=== PATIENT | male | born 1960 | race Caucasian/White ===

== ENCOUNTER 2016-10-14 18:47 | Outpatient (CLI) | payer BC, OTHER | END 2016-10-14 18:48 | disposition critical access hospital (66) | DX: Z04.6 Encounter for general psychiatric examination, requested by authority (principal) | CPT/HCPCS: A0425; A0429 ==

== ENCOUNTER 2016-12-17 17:29 | Emergency (ER) | payer BC, OTHER ==
[2016-12-17] MEDS ORDERED: LORazepam 0.5 MG TABLET PO STA (18:57)
[2016-12-17] MEDS ORDERED: THIAMINE 100 MG TABLET PO STA (18:57)
--- NOTE | 2016-12-17 19:00 | ED Physician Documentation ---
History of Present Illness - Stated complaint Stated Complaint: ETOH - Chief complaint Chief Complaint: General - History obtained from History obtained from: Patient - History of Present Illness Timing: Other (He presents accompanied by a coworker requesting help with alcohol detox. He denies suicidal ideation.) Review of Systems Constitutional: denies: Fever, Chills Cardiac: denies: Chest pain / pressure, Palpitations Respiratory: denies: Dyspnea, Cough GI: denies: Abdominal Pain PD PAST MEDICAL HISTORY - Past Medical History Cardiovascular: Hypertension, Pulmonary embolism Respiratory: COPD - Past Surgical History Past Surgical History: Yes - Present Medications Home Medications: Ambulatory Orders Medication Instructions Recorded Confirmed Lisinopril/Hydrochlorothiazide 1 cap DAILY 04/27/14 10/14/16 [Lisinopril-Hctz 20-12.5 mg Tab] - Allergies Allergies/Adverse Reactions: Allergies Allergy/AdvReac Type Severity Reaction Status Date / Time No Known Drug Allergies Allergy Verified 10/14/16 19:10 - Social History Does the pt smoke?: Yes Smoking Status: Current every day smoker Does the pt drink ETOH?: Yes Does the pt have substance abuse?: No - Immunizations Immunizations are current?: No - POLST Patient has POLST: No PD ED PE NORMAL - Vitals Vital signs reviewed: Yes - General General: Alert and oriented X 3, Other (ssmells of alcohol but cogent) - Neck Neck: Supple, no meningeal sign, No bony TTP - Neuro Neuro: Alert and oriented X 3, Normal speech - Psych Psych: Normal mood, Normal affect Results - Vitals Vitals: Vital Signs - 24 hr 12/17/16 17:41 Temperature 36.6 C Heart Rate 119 H Respiratory 20 Rate Blood Pressure 113/79 O2 Saturation 97 Oxygen O2 Source Room air PD MEDICAL DECISION MAKING - ED course ED course: There is no evidence of significant withdrawal at this juncture, he does not plan to drink tonight. No social organization professor available to help him navigate at this point and he is encouraged to return in the morning for social organization professor evaluation. Departure - Departure Disposition: 01 Home, Self Care Clinical Impression: Alcohol abuse Condition: Good Record reviewed to determine appropriate education?: Yes Instructions: Addiction Alcohol Comments: Return tomorrow morning at 8 a.m. for social work evaluation.
[2016-12-17] MEDS ORDERED: THIAMINE 100 MG TABLET PO ONE (19:05)
[2016-12-17] MEDS ORDERED: LORazepam 0.5 MG TABLET ONE (19:05)
[2016-12-17 19:11] VITALS: BP 122/80
== END 2016-12-17 19:14 | disposition home or self-care (01) ==
LOC: ED 17:29
DX: F10.10 Alcohol abuse, uncomplicated (principal); I10 Essential (primary) hypertension; J44.9 Chronic obstructive pulmonary disease, unspecified; Z86.711 Personal history of pulmonary embolism; F17.200 Nicotine dependence, unspecified, uncomplicated
CPT/HCPCS: 99283; A9270

== ENCOUNTER 2016-12-18 09:16 | Emergency (ER) | payer BC, OTHER ==
[2016-12-18] MEDS ORDERED: LORazepam 2 MG/ML SYRINGE IVP STA (09:55)
[2016-12-18] MEDS ORDERED: FOLIC ACID INJ 1 MG, THIAMINE INJ 100 MG, MAGNESIUM SULFATE 2 GM, MULTIVITAMIN 10 ML in... IV STA ×5 (09:55)
[2016-12-18] MEDS ORDERED: LORazepam 2 MG/ML SYRINGE ONE (09:57)
[2016-12-18 10:15] LABS: BASOPHILS % (AUTO) 0.4 %; HCT - HEMATOCRIT 41.5 % (42.0-52.0); HGB - HEMOGLOBIN 14.6 g/dL (14.0-18.0); LYMPHOCYTES # (AUTO) 0.7 10^3/uL (1.5-3.5); LYMPHOCYTES % (AUTO) 6.2 %; MEAN CORPUSCULAR HEMOGLOBIN 34.3 pg (27.0-31.0); MEAN CORPUSCULAR HGB CONC 35.2 g/dL (32.0-36.0); MEAN CORPUSCULAR VOLUME 97.3 fL (80.0-94.0); MEAN PLATELET VOLUME 6.2 fL (7.4-11.4); MONOCYTES # (AUTO) 0.4 10^3/uL (0.0-1.0); MONOCYTES % (AUTO) 3.8 %; NEUTROPHILS # (AUTO) 10.7 10^3/uL (1.5-6.6); NEUTROPHILS % (AUTO) 89.6 %; RED BLOOD COUNT 4.27 10^6/uL (4.70-6.10); RED CELL DISTRIBUTION WIDTH 13.3 % (12.0-15.0)
[2016-12-18 10:28] LABS: ALBUMIN/GLOBULIN RATIO 1.4 (1.0-2.2); BILIRUBIN,TOTAL 1.2 mg/dL (0.2-1.0); BUN - BLOOD UREA NITROGEN 13 mg/dL (6-20); CALCIUM 9.3 mg/dL (8.5-10.3); CARBON DIOXIDE - CO2 28 mmol/L (21-32); CHLORIDE 97 mmol/L (101-111); CREATININE 0.9 mg/dL (0.6-1.2); GFR - MDRD 87 (>89); GLUCOSE 128 mg/dL (70-100); LIPASE 16 U/L (22-51); POTASSIUM 4.4 mmol/L (3.5-5.0); SODIUM 137 mmol/L (135-145); TOTAL PROTEIN 7.8 g/dL (6.7-8.2)
[2016-12-18 12:05] VITALS: BP 135/83
--- NOTE | 2016-12-18 12:05 | ED Physician Documentation ---
History of Present Illness - Stated complaint Stated Complaint: VOMITING,DETOX - Chief complaint Chief Complaint: Abd Pain - History obtained from History obtained from: Patient, Family - History of Present Illness Timing: Last night - Additonal information Additional information: 56 y/o male smoker with COPD and alcoholism has decided to stop drinking last night. He has had symptoms similar to what he has had before with shakes and vomiting. He indicates he drinks high gravity 24's usually 1-2 per day. He has not had seizure previously and he did have some vomiting last night. Review of Systems Constitutional: denies: Fever Eyes: denies: Decreased vision Ears: denies: Ear pain Nose: denies: Congestion Throat: denies: Sore throat Cardiac: denies: Chest pain / pressure Respiratory: reports: Cough. denies: Dyspnea GI: reports: Nausea, Vomiting. denies: Abdominal Pain, Constipation, Diarrhea : denies: Dysuria, Frequency Skin: denies: Rash Musculoskeletal: denies: Neck pain, Back pain, Extremity pain Neurologic: reports: Headache. denies: Generalized weakness, Focal weakness, Numbness, Head injury, LOC PD PAST MEDICAL HISTORY - Past Medical History Cardiovascular: Hypertension, Pulmonary embolism Respiratory: COPD - Past Surgical History Past Surgical History: Yes - Present Medications Home Medications: Ambulatory Orders Medication Instructions Recorded Confirmed Lisinopril/Hydrochlorothiazide 1 cap DAILY 04/27/14 10/14/16 [Lisinopril-Hctz 20-12.5 mg Tab] Lorazepam [Ativan] 1 - 2 mg PO Q6HR PRN #30 tablet 12/18/16 Ondansetron Odt [Zofran] 4 mg TL Q6H PRN #10 tablet 12/18/16 - Allergies Allergies/Adverse Reactions: Allergies Allergy/AdvReac Type Severity Reaction Status Date / Time No Known Drug Allergies Allergy Verified 10/14/16 19:10 - Social History Does the pt smoke?: Yes Smoking Status: Current every day smoker Does the pt drink ETOH?: Yes Does the pt have substance abuse?: No - Immunizations Immunizations are current?: No - POLST Patient has POLST: No PD ED PE NORMAL - Vitals Vital signs reviewed: Yes (tachy and hypertensive) - General General: Alert and oriented X 3, No acute distress, Well developed/nourished - HEENT HEENT: Atraumatic, PERRL, EOMI, Other (dry mucous membranes) - Neck Neck: Supple, no meningeal sign, No bony TTP - Cardiac Cardiac: No murmur, Other (tachy to 110) - Respiratory Respiratory: No respiratory distress, Clear bilaterally - Abdomen Abdomen: Soft, Non tender - Back Back: No CVA TTP, No spinal TTP - Derm Derm: Normal color, Warm and dry, No rash - Extremities Extremities: No deformity, No edema - Neuro Neuro: Alert and oriented X 3, regulatory compliance manager 2-12 intact, No motor deficit, No sensory deficit, Normal speech - Psych Psych: Normal mood, Normal affect Results - Vitals Vitals: Vital Signs - 24 hr 12/18/16 12/18/16 12/18/16 09:21 10:10 10:57 Temperature 36.6 C Heart Rate 125 H 111 H 116 H Respiratory 16 18 18 Rate Blood Pressure 146/97 H 123/92 H 135/63 H O2 Saturation 96 100 97 12/18/16 12:04 Temperature Heart Rate 105 H Respiratory 18 Rate Blood Pressure 135/83 H O2 Saturation 97 Oxygen O2 Source Room air - Labs Labs: Laboratory Tests 12/18/16 12/18/16 12/18/16 10:06 10:06 10:06 WBC 12.0 H RBC 4.27 L Hgb 14.6 Hct 41.5 L MCV 97.3 H MCH 34.3 H MCHC 35.2 RDW 13.3 Plt Count 331 MPV 6.2 L Neut # 10.7 H Lymph # 0.7 L [place] # 0.4 Eos # 0.0 Baso # 0.0 Absolute Nucleated RBC 0.01 Nucleated RBCs 0.0 Sodium 137 Potassium 4.4 Chloride 97 L Carbon Dioxide 28 Anion Gap 12.0 BUN 13 Creatinine 0.9 Estimated GFR (MDRD) 87 L Glucose 128 H Calcium 9.3 Total Bilirubin 1.2 H AST 38 ALT 28 Alkaline Phosphatase 101 Troponin I < 0.04 Total Protein 7.8 Albumin 4.5 Globulin 3.3 Albumin/Globulin Ratio 1.4 Lipase 16 L Ethyl Alcohol < 5.0 PD MEDICAL DECISION MAKING - ED course Complexity details: reviewed old records, reviewed results, re-evaluated patient , considered differential, d/w patient, d/w family ED course: 56 y/o male with history of alcoholism has decided to stop drinking and is in early withdrawal. He has had the shakes and the vomiting and he feels he is on the other side of that already. He has tachycardia and hypertension and he is given a banana bag IV and ativan IV and feels improved. The social services coordinator is not able to directly see the patient as she is working the floor today and she does provide some resources. The patient is interested in some out patient help and feels that he will be able to detox without being in a hospital. He is given a script for ativan and instruction on its use for withdrawal. Departure - Departure Disposition: 01 Home, Self Care Clinical Impression: Alcohol withdrawal Qualifiers: Complication of substance-induced condition: uncomplicated Qualified Code(s): F10.230 - Alcohol dependence with withdrawal, uncomplicated Condition: Stable Instructions: ED Withdrawal Alcohol Follow-Up: Bay Montano DO [Primary Care Provider] - Prescriptions: Lorazepam [Ativan] 1 - 2 mg PO Q6HR PRN #30 tablet PRN Reason: withdrawal symptoms Ondansetron Odt [Zofran] 4 mg TL Q6H PRN #10 tablet PRN Reason: Nausea / Vomiting Forms: Activity restrictions Discharge Date/Time: 12/18/16 12:13
== END 2016-12-18 12:13 | disposition home or self-care (01) ==
LOC: ED 09:16
DX: F10.230 Alcohol dependence with withdrawal, uncomplicated (principal); F17.200 Nicotine dependence, unspecified, uncomplicated; I10 Essential (primary) hypertension; I26.99 Other pulmonary embolism without acute cor pulmonale
CPT/HCPCS: 36415; 80053; 80320; 83690; 84484; 85025; 96374; 96375; 99283; 99284; J2060; J3411

== ENCOUNTER 2018-08-11 09:10 | Outpatient (CLI) | payer BC, OTHER ==
[2018-08-11 12:21] LABS: BASOPHILS # (AUTO) 0.1 10^3/uL (0.0-0.1); BASOPHILS % (AUTO) 0.8 %; EOSINOPHILS % (AUTO) 0.6 %; LYMPHOCYTES # (AUTO) 1.7 10^3/uL (1.5-3.5); LYMPHOCYTES % (AUTO) 26.3 %; MEAN CORPUSCULAR HGB CONC 35.2 g/dL (32.0-36.0); MEAN PLATELET VOLUME 6.4 fL (7.4-11.4); MONOCYTES # (AUTO) 0.4 10^3/uL (0.0-1.0); MONOCYTES % (AUTO) 5.5 %; NEUTROPHILS # (AUTO) 4.4 10^3/uL (1.5-6.6); NEUTROPHILS % (AUTO) 66.8 %; PLT - PLATELET COUNT 326 10^3/uL (130-450); RED BLOOD COUNT 3.89 10^6/uL (4.70-6.10); RED CELL DISTRIBUTION WIDTH 12.8 % (12.0-15.0); WHITE BLOOD COUNT 6.6 x10^3/uL (4.8-10.8)
[2018-08-11 12:54] LABS: ALBUMIN 4.2 g/dL (3.2-5.5); ALBUMIN/GLOBULIN RATIO 1.2 (1.0-2.2); ALKALINE PHOSPHATASE 81 IU/L (42-121); ALT ALANINE AMINOTRANSFERASE 15 IU/L (10-60); AST ASPARTATE AMINOTRANSFERASE 22 IU/L (10-42); BILIRUBIN,TOTAL 0.5 mg/dL (0.2-1.0); BUN - BLOOD UREA NITROGEN 20 mg/dL (6-20); CALCIUM 8.7 mg/dL (8.5-10.3); CARBON DIOXIDE - CO2 29 mmol/L (21-32); CHLORIDE 96 mmol/L (101-111); CHOLESTEROL 140 mg/dL; CREATININE 0.7 mg/dL (0.6-1.2); GFR - MDRD 115 (>89); GLUCOSE 91 mg/dL (70-100); HDL CHOLESTEROL 69 mg/dL; LDL CHOLESTEROL,CALCULATED 35 mg/dL; LDL/HDL RATIO 0.5 (<3.6); SODIUM 134 mmol/L (135-145); TOTAL PROTEIN 7.6 g/dL (6.7-8.2); VLDL CHOLESTEROL 36 mg/dL
== END 2018-08-11 23:59 | disposition home or self-care (01) ==
LOC: LAB.WCP 09:10
PROVIDERS: ATTEND Family Medicine
DX: I10 Essential (primary) hypertension (principal)
CPT/HCPCS: 36415; 80053; 80061; 83721; 84153; 85025

== ENCOUNTER 2019-08-25 09:08 | Outpatient (CLI) | payer BC, OTHER ==
--- NOTE | 2019-08-25 15:23 | XRAY Report ---
Reason: COPD Procedure Date: 08/25/2019 Accession Number: [id number] / [id number] Procedure: WCP - Chest 2 View X-Ray CPT Code: 91184 Final Report FULL RESULT: EXAM: CHEST RADIOGRAPHY 2 VIEWS EXAM DATE: 08/25/2019. CLINICAL HISTORY: Chronic obstructive pulmonary disease. Asthma. Cough for one week. COMPARISON: AP upright portable chest on 01/29/2016. TECHNIQUE: PA and lateral views. FINDINGS: Lungs/Pleura: Normal vasculature. The lungs are hyperinflated. No consolidation or mass. No pleural fluid or pneumothorax. Mediastinum: Heart size is normal. Aortic tortuosity is unchanged. Otherwise normal mediastinal contours. Bones: Mild levoconvex thoracic scoliosis. Healed fractures of anterior right sixth, seventh and eighth ribs. Other: Metal nipple ring projected over the lower left chest. IMPRESSION: Pulmonary hyperinflation consistent with chronic obstructive pulmonary disease. No acute cardiopulmonary abnormality. RADIA
--- NOTE | 2019-08-25 16:25 | XRAY Report ---
Reason: SCOLIOSIS Procedure Date: 08/25/2019 Accession Number: [id number] / [id number] Procedure: P - Spine Scoliosis Study 6+V CPT Code: Final Report FULL RESULT: EXAM: SCOLIOSIS RADIOGRAPHY EXAM DATE: 08/25/2019 09:08 AM. CLINICAL HISTORY: Scoliosis. COMPARISONS: CHEST 1 VIEW 01/27/2016 11:04 PM CHEST 1 VIEW 01/29/2016 5:31 AM CHEST ANGIO 04/27/2014 5:34 PM. TECHNIQUE: AP and lateral views of the entire spine. FINDINGS: Odontoid view is suboptimal, study is diagnostic for the purpose of scoliosis. Alignment: Approximately 8 mm of anterolisthesis of L5 on S1. There is a levoconvex S-shaped thoracic scoliosis centered about T9, approximately 8 degrees followed by a minimal compensatory lumbar scoliosis centered about L1, less than 4 degrees. No cervical scoliosis. Bones: The bones are qualitatively osteopenic; this limits evaluation for underlying fractures or masses. No convincing compression fracture is detected. There is a pars defect at L5. Disks: Multilevel degenerative changes of the cervical spine which are most pronounced at C4, C5 and C6 with loss of disk space height and formation of disk osteophyte complexes. Soft Tissues: Normal. The visualized lungs and cardiomediastinal silhouette are normal. The bowel gas pattern is normal. IMPRESSION: Minor thoracolumbar scoliosis, not significantly different from 2014 CT. L5 pars defect with 8 mm of anterolisthesis. RADIA
== END 2019-08-25 09:09 | disposition home or self-care (01) ==
LOC: DI.WCP 09:08
PROVIDERS: ATTEND Family Medicine
DX: J44.9 Chronic obstructive pulmonary disease, unspecified (principal); M43.06 Spondylolysis, lumbar region; M50.321 Other cervical disc degeneration at C4-C5 level; M41.9 Scoliosis, unspecified
CPT/HCPCS: 71046; 72084

== ENCOUNTER 2019-11-16 18:13 | Outpatient (CLI) | payer BC, OTHER | END 2019-11-16 18:14 | disposition critical access hospital (66) | LOC: EMS 18:13 | PROVIDERS: ATTEND Surgery | DX: M54.9 Dorsalgia, unspecified (principal); W01.10XA Fall on same level from slipping, tripping and stumbling with subsequent striking against unspecified object, initial encounter | CPT/HCPCS: A0425; A0429 ==

== ENCOUNTER 2019-11-16 18:33 | Emergency (ER) | payer BC, OTHER ==
--- NOTE | 2019-11-16 19:16 | ED Physician Documentation ---
History of Present Illness - Stated complaint Stated Complaint: MID BACK PAIN - Chief complaint Chief Complaint: Back Pain - History obtained from History obtained from: Patient (59-year-old male presents this evening via EMS for chief complaint of left-sided back pain from ground-level fall approximately 1 week ago. Patient states he was at home ambulating to his house when he tripped on a throw rug, he fell to the ground landing on his butt and then falling sideways landed on a leg of a chair on his left ribs. He has had left- sided rib pain since then. He denies hitting his head, he denies any loss of consciousness, he denies pain anywhere else. States pain is worse when he moves his upper torso in any position, somewhat more comfortable when lying down though he is getting less sleep because of the pain. Denies any breathing problems outside of his usual COPD/asthma.) - History of Present Illness Timing: How many weeks ago (1) Pain level max: 8 Pain level now: 3 Quality: constant, ache Radiates to: nowhere Improved by: nothing Worsened by: movement - Treatment prior to arrival Treatment prior to arrival: nothing Review of Systems Constitutional: reports: Reviewed and negative Eyes: reports: Reviewed and negative Ears: reports: Reviewed and negative Nose: reports: Reviewed and negative Cardiac: reports: Reviewed and negative Respiratory: reports: Reviewed and negative : reports: Reviewed and negative Musculoskeletal: reports: Other (left lateral rib pain.) PD PAST MEDICAL HISTORY - Past Medical History Past Medical History: Yes Cardiovascular: Hypertension, Pulmonary embolism Respiratory: COPD - Past Surgical History Past Surgical History: Yes - Present Medications Home Medications: Ambulatory Orders Medication Instructions Recorded Confirmed Lisinopril/Hydrochlorothiazide 1 cap DAILY 04/27/14 10/14/16 [Lisinopril-Hctz 20-12.5 mg Tab] Lorazepam [Ativan] 1 - 2 mg PO Q6HR PRN #30 tablet 12/18/16 Ondansetron Odt [Zofran] 4 mg TL Q6H PRN #10 tablet 12/18/16 - Allergies Allergies/Adverse Reactions: Allergies Allergy/AdvReac Type Severity Reaction Status Date / Time No Known Drug Allergies Allergy Verified 11/16/19 18:41 - Social History Does the pt smoke?: Yes Smoking Status: Current every day smoker Does the pt drink ETOH?: Yes Does the pt have substance abuse?: No - Immunizations Immunizations are current?: No - POLST Patient has POLST: No PD ED PE NORMAL - General General: Alert and oriented X 3, No acute distress - HEENT HEENT: Atraumatic, PERRL, EOMI - Neck Neck: No adenopathy - Cardiac Cardiac: RRR - Respiratory Respiratory: No respiratory distress, Clear bilaterally - Abdomen Abdomen: Normal bowel sounds, Soft, Non tender - Back Back: No CVA TTP - Derm Derm: Normal color, Warm and dry, No rash - Neuro Neuro: Alert and oriented X 3 Results - Vitals Vitals: Vital Signs - 24 hr 11/16/19 11/16/19 18:41 19:47 Temperature 36.6 C Heart Rate 120 H 98 Respiratory 16 16 Rate Blood Pressure 139/93 H 126/84 H O2 Saturation 96 93 Oxygen O2 Source Room air - Rads (name of study) No standard instances Radiology: Final report received (No acute fracture noted.), See rad report PD MEDICAL DECISION MAKING - ED course Complexity details: reviewed results, re-evaluated patient, considered differe ntial (Left rib fracture versus left bone contusion.), d/w patient Departure - Departure Disposition: 01 Home, Self Care Clinical Impression: Contusion of rib on left side Qualifiers: Encounter type: initial encounter Qualified Code(s): S20.212A - Contusion of left front wall of thorax, initial encounter Condition: Good Instructions: ED Contusion Chest Wall Comments: There were no fractures noted to be ribs on the left side today. All you most likely have a rib contusion on the left side from hitting knee foot of the chair. You can continue to use her normal [id number] pain medicine, Tylenol, ibuprofen for pain control he can also apply ice to that area. You may follow-up with your primary care provider for further treatment options. I recommend you remove your throw rugs from your house so that you do not have issues with tripping on them in the future. Follow-up with your primary care provider to discuss treatment options for your COPD. Discharge Date/Time: 11/16/19 20:34
[2019-11-16 19:48] VITALS: BP 126/84
--- NOTE | 2019-11-16 20:22 | XRAY Report ---
Reason: GLF, left lateral rib pain. Procedure Date: 11/16/2019 Accession Number: [id number] / [id number] Procedure: XR - Ribs w/PA Chest LT CPT Code: Final Report FULL RESULT: EXAM: LEFT RIB RADIOGRAPHY EXAM DATE: 11/16/2019 07:39 PM. CLINICAL HISTORY: Lateral left rib cage pain status post trauma during a ground-level fall. COMPARISON: CHEST 2 VIEW 08/25/2019 8:55 AM; CHEST ANGIO 04/27/2014 5:34 PM. TECHNIQUE: 1 view of the chest and 2 views of the left ribs. FINDINGS: Bones: Healed lateral left seventh rib fracture. No acute fracture or bone lesion. Normal bone mineralization. Lungs: No focal opacities. No pneumothorax. No pleural effusions. Mediastinum: The cardiac silhouette size is normal. Tortuous thoracic aorta. Other: Left nipple jewelry. IMPRESSION: 1. No acute fracture. 2. Healed lateral left seventh rib fracture. 3. Ectatic thoracic aorta. 4. Left nipple jewelry. RADIA
== END 2019-11-16 20:34 | disposition home or self-care (01) ==
LOC: EDUNIT# → ED 18:33
DX: S20.212A Contusion of left front wall of thorax, initial encounter (principal); W01.190A Fall on same level from slipping, tripping and stumbling with subsequent striking against furniture, initial encounter; Y92.009 Unspecified place in unspecified non-institutional (private) residence as the place of occurrence of the external cause; I10 Essential (primary) hypertension; F17.200 Nicotine dependence, unspecified, uncomplicated
CPT/HCPCS: 93005; 99283; 99284

== ENCOUNTER 2019-11-19 13:47 | Outpatient (CLI) | payer BC, OTHER | END 2019-11-19 23:59 | disposition critical access hospital (66) | LOC: EMS 13:47 | PROVIDERS: ATTEND Surgery | DX: R55 Syncope and collapse (principal); S09.90XA Unspecified injury of head, initial encounter; W19.XXXA Unspecified fall, initial encounter; Y92.512 Supermarket, store or market as the place of occurrence of the external cause; R41.82 Altered mental status, unspecified; R47.81 Slurred speech | CPT/HCPCS: A0425; A0427 ==

== ENCOUNTER 2019-11-19 14:04 | Emergency (ER) | payer BC, OTHER ==
[2019-11-19] MEDS ORDERED: TETANUS/DIPHTHERIA/PERTUSSIS 0.5 ML SYRINGE IM ONE (14:29)
--- NOTE | 2019-11-19 14:31 | ED Physician Documentation ---
PD HPI HEAD INJURY - Stated complaint Stated Complaint: SYNCOPE - Chief complaint Chief Complaint: Neuro - History obtained from History obtained from: Patient (59-year-old gentleman with history of hypertension and COPD had a few drinks and then ambulated over to the grocery store, he does not quite remember which 1. He thinks it was probably [employer] because that is the one he lives closest to. Evidently passed out there and hit his head. He has a left-sided head injury, but it is not hurting him. He denies any painful injuries except for his back which is a more chronic issue and was not hurt today.) Review of Systems Ten Systems: 10 systems reviewed and negative Constitutional: denies: Fever, Chills Eyes: reports: Reviewed and negative Ears: reports: Reviewed and negative Nose: reports: Reviewed and negative Throat: reports: Reviewed and negative Cardiac: reports: Reviewed and negative Respiratory: reports: Reviewed and negative PD PAST MEDICAL HISTORY - Past Medical History Cardiovascular: Hypertension, Pulmonary embolism Respiratory: COPD - Past Surgical History Past Surgical History: Yes - Present Medications Home Medications: Ambulatory Orders Medication Instructions Recorded Confirmed Lisinopril/Hydrochlorothiazide 1 cap DAILY 04/27/14 10/14/16 [Lisinopril-Hctz 20-12.5 mg Tab] Lorazepam [Ativan] 1 - 2 mg PO Q6HR PRN #30 tablet 12/18/16 Ondansetron Odt [Zofran] 4 mg TL Q6H PRN #10 tablet 12/18/16 - Allergies Allergies/Adverse Reactions: Allergies Allergy/AdvReac Type Severity Reaction Status Date / Time No Known Drug Allergies Allergy Verified 11/19/19 14:16 - Social History Does the pt smoke?: Yes Smoking Status: Current every day smoker Does the pt drink ETOH?: Yes Does the pt have substance abuse?: No - Immunizations Immunizations are current?: No - POLST Patient has POLST: No PD ED PE NORMAL - Vitals Vital signs reviewed: Yes - General General: Alert and oriented X 3, Other (He is alert and oriented, calm and cooperative. He does smell slightly of alcohol and has significant horizontal nystagmus. He is maintained in C-spine precautions pending imaging despite lack of neck tenderness given his potentially intoxicated status.) - HEENT HEENT: PERRL, Other (On the left samaritan there is a goose egg with an overlying abrasion, nothing that needs suturing or repair.) - Neck Neck: No bony TTP - Cardiac Cardiac: RRR, No murmur - Respiratory Respiratory: No respiratory distress, Clear bilaterally - Abdomen Abdomen: Soft, Non tender - Back Back: No CVA TTP, No spinal TTP - Derm Derm: Normal color, Warm and dry - Extremities Extremities: No tenderness to palpate, Normal ROM s pain, No edema, No calf tenderness / cord - Neuro Neuro: Alert and oriented X 3, No motor deficit, No sensory deficit, Normal speech Results - Vitals Vitals: Vital Signs - 24 hr 11/19/19 11/19/19 14:11 15:35 Temperature 36.7 C 36.9 C Heart Rate 118 H 108 H Respiratory 20 18 Rate Blood Pressure 112/92 H 167/124 H O2 Saturation 95 97 Oxygen O2 Source Room air - EKG (time done) 1419 Rate: Rate (enter#) (107) Rhythm: Sinus tachycardia [place]: Normal Intervals: Normal DC QRS: Normal Ischemia: Normal ST segments Computer interpretation: Agree with computer - Labs Labs: Laboratory Tests 11/19/19 11/19/19 11/19/19 15:00 15:00 15:00 WBC 5.2 RBC 3.66 L Hgb 13.1 L Hct 38.4 L MCV 104.9 H MCH 35.8 H MCHC 34.1 RDW 12.4 Plt Count 147 MPV 8.2 Neut # (Auto) 3.5 Lymph # (Auto) 1.2 L [place] # (Auto) 0.3 Eos # (Auto) 0.0 Baso # (Auto) 0.1 Absolute Nucleated RBC 0.00 Nucleated RBC % 0.0 PT 11.1 INR 1.0 Sodium 138 Potassium 5.0 Chloride 100 L Carbon Dioxide 27 Anion Gap 11.0 BUN 9 Creatinine 0.6 Estimated GFR (MDRD) 137 Glucose 96 Calcium 8.8 Total Bilirubin 0.7 AST 157 H ALT 93 H Alkaline Phosphatase 95 Total Protein 7.7 Albumin 4.4 Globulin 3.3 Albumin/Globulin Ratio 1.3 Lipase 34 - Rads (name of study) CT head and cervical spine Radiology: EMP read contemporaneously (Brain looks normal, left temporal hematoma. Multilevel degenerative changes in the neck.) PD MEDICAL DECISION MAKING - ED course ED course: 59-year-old gentleman passed out at the [employer] store, likely from alcohol use. He was clinically sober by the time of discharge. Counseled to stop using alcohol. Departure - Departure Disposition: 01 Home, Self Care Clinical Impression: Alcohol abuse Alcohol intoxication Qualifiers: Complication of substance-induced condition: uncomplicated Qualified Code(s): F10.920 - Alcohol use, unspecified with intoxication, uncomplicated Syncope Qualifiers: Syncope type: unspecified Qualified Code(s): R55 - Syncope and collapse Head injury Qualifiers: Encounter type: initial encounter Qualified Code(s): S09.90XA - Unspecified injury of head, initial encounter Condition: Good Record reviewed to determine appropriate education?: Yes Instructions: ED Alcohol Intoxication, ED Fainting Unkn Cause Comments: It is imperative for you to stop drinking. This is not your first emergency department visit related to alcohol abuse. Return for new or worsening symptoms. Follow-up with your primary care physician, next available appointment. Discharge Date/Time: 11/19/19 16:07
[2019-11-19 15:05] LABS: BASOPHILS # (AUTO) 0.1 10^3/uL (0.0-0.1); EOSINOPHILS % (AUTO) 0.8 %; HGB - HEMOGLOBIN 13.1 g/dL (14.0-18.0); LYMPHOCYTES # (AUTO) 1.2 10^3/uL (1.5-3.5); LYMPHOCYTES % (AUTO) 23.1 %; MEAN CORPUSCULAR HEMOGLOBIN 35.8 pg (27.0-31.0); MEAN CORPUSCULAR HGB CONC 34.1 g/dL (32.0-36.0); MEAN CORPUSCULAR VOLUME 104.9 fL (80.0-94.0); MEAN PLATELET VOLUME 8.2 fL (7.4-11.4); MONOCYTES # (AUTO) 0.3 10^3/uL (0.0-1.0); MONOCYTES % (AUTO) 6.6 %; NEUTROPHILS # (AUTO) 3.5 10^3/uL (1.5-6.6); NEUTROPHILS % (AUTO) 68.1 %; PLT - PLATELET COUNT 147 10^3/uL (130-450); RED BLOOD COUNT 3.66 10^6/uL (4.70-6.10); RED CELL DISTRIBUTION WIDTH 12.4 % (12.0-15.0); WHITE BLOOD COUNT 5.2 x10^3/uL (4.8-10.8)
[2019-11-19 15:11] LABS: PT - PROTHROMBIN TIME 11.1 secs (9.9-12.6)
[2019-11-19 15:18] LABS: ALBUMIN 4.4 g/dL (3.2-5.5); ALBUMIN/GLOBULIN RATIO 1.3 (1.0-2.2); BILIRUBIN,TOTAL 0.7 mg/dL (0.2-1.0); CALCIUM 8.8 mg/dL (8.5-10.3); CREATININE 0.6 mg/dL (0.6-1.2); TOTAL PROTEIN 7.7 g/dL (6.7-8.2)
--- NOTE | 2019-11-19 15:21 | CT Report ---
Reason: head injury etoh Procedure Date: 11/19/2019 Accession Number: [id number] / [id number] Procedure: CT - HEAD WO CPT Code: Final Report FULL RESULT: EXAM: CT HEAD EXAM DATE: 11/19/2019 02:52 PM. CLINICAL HISTORY: Head injury ETOH. COMPARISON: None. TECHNIQUE: Multiaxial CT images were obtained from the foramen magnum to the vertex. Reformats: Sagittal and coronal. IV contrast: None. In accordance with CT protocol optimization, one or more of the following dose reduction techniques were utilized for this exam: automated exposure control, adjustment of mA and/or KV based on patient size, or use of iterative reconstructive technique. FINDINGS: Parenchyma: No intraparenchymal hemorrhage. No evidence of mass, midline shift, or CT findings of infarction. Cyr-white differentiation is distinct. Extraaxial Spaces: Normal for age. No subdural or epidural collections identified. Ventricles: Normal in size and position. Sinuses and Orbits: Imaged paranasal sinuses, orbits, and mastoids show no significant abnormality. Bones: There is a superior lateral left scalp hematoma. There is no calvarium fracture. Other: None. IMPRESSION: 1. Lateral left scalp hematoma. No fracture. 2. Negative for intracranial hemorrhage, mass effect or localizing edema. RADIA
--- NOTE | 2019-11-19 15:30 | CT Report ---
Reason: head injury etoh Procedure Date: 11/19/2019 Accession Number: [id number] / [id number] Procedure: CT - CERVICAL SPINE WO CPT Code: Final Report FULL RESULT: EXAM: CT CERVICAL SPINE WITHOUT CONTRAST DATE: 11/19/2019 02:52 PM. HISTORY: Head injury etoh. COMPARISONS: None. TECHNIQUE: Thin-section axial images were acquired of the cervical spine without contrast. Post-processing: Coronal and sagittal reformats. Other: None. In accordance with CT protocol optimization, one or more of the following dose reduction techniques were utilized for this exam: automated exposure control, adjustment of mA and/or KV based on patient size, or use of iterative reconstructive technique. FINDINGS: Alignment: No scoliosis or spondylolisthesis. Bones: No fracture or bone lesion. Incomplete bony union posterior aspect of C1-C2 mm gap Interspace Levels/Facets: C1-C2: Unremarkable. C2-C3: Unremarkable. C3-C4: Left facet arthropathy C4-C5: Osteophyte. Disk space narrowing, subchondral sclerosis. Uncovertebral osteophyte. Bilateral facet arthropathy. Bilateral neuroforamina narrowing. C5-C6: Osteophyte. Disk space narrowing, subchondral sclerosis. Uncovertebral osteophyte. Bilateral neuroforamina narrowing. C6-C7: Osteophyte. Disk space narrowing, subchondral sclerosis. Uncovertebral osteophyte. Bilateral neuroforamina narrowing. C7-T1: Osteophyte, disk space narrowing, uncovertebral osteophyte. Right neuroforamina narrowing. Musculature: Normal. No fatty atrophy. Other: The paravertebral and prevertebral soft tissues are unremarkable. The lung apices are clear. Mucosal thickening maxillary, sphenoid sinuses IMPRESSION: Multilevel degenerative changes. RADIA
[2019-11-19 15:36] VITALS: BP 167/124
== END 2019-11-19 16:07 | disposition home or self-care (01) ==
LOC: EDUNIT# → ED 14:04
DX: F10.120 Alcohol abuse with intoxication, uncomplicated (principal); R55 Syncope and collapse; S06.9X9A Unspecified intracranial injury with loss of consciousness of unspecified duration, initial encounter; S00.83XA Contusion of other part of head, initial encounter; W18.30XA Fall on same level, unspecified, initial encounter; Y92.512 Supermarket, store or market as the place of occurrence of the external cause; I10 Essential (primary) hypertension; J44.9 Chronic obstructive pulmonary disease, unspecified; F17.210 Nicotine dependence, cigarettes, uncomplicated
CPT/HCPCS: 36415; 70450; 72125; 80053; 83690; 85025; 85610; 90471; 93005; 99284

== ENCOUNTER 2019-12-23 08:00 | Outpatient (CLI) | payer BC, OTHER ==
[2019-12-23 13:57] LABS: CALCIUM 9.2 mg/dL (8.5-10.3); CREATININE 0.8 mg/dL (0.6-1.2)
== END 2019-12-23 23:59 | disposition home or self-care (01) ==
LOC: LAB.WCP 08:00
PROVIDERS: ATTEND Family Medicine
DX: R60.9 Edema, unspecified (principal)
CPT/HCPCS: 36415; 80048

== ENCOUNTER 2020-08-03 09:53 | Outpatient (CLI) | payer OTHER ==
--- OUTSIDE RECORDS SUMMARY | 2020-08-08 01:33 | EXTERNAL MEDICAL SUMMARY RPT | Continuity of Care Document ---
:1960 Demographics Phone Unavailable Preferred Language pat Marital Status Unknown Anglican Affiliation Unknown Race Unknown Ethnic Group Unknown Author Organization [place] Address [address] [place] [address] Phone Care Team Providers Name Role Phone Scheidt Unavailable Unavailable DO Unavailable Unavailable Problems date description facility 2020-06-05 00:00:00 Other dyspnea and respiratory [facility] Primary [facility] abnormality [place] [facility] 2020-06-05 00:00:00 [facility] [place] [facility] 2020-06-05 00:00:00 Basic Metabolic Panel (BMP) [facility] [place] [facility] 2020-06-05 00:00:00 B-[facility] [place] [facility] 2020-06-05 00:00:00 CBC W/O Diff[facility] [place] [facility] 2020-06-05 00:00:[facility] [place] [facility] 2020-06-05 00:00:00 US VENOUS, LOWER EXTREMITY, [facility] BILATERAL [place] [facility] 2020-06-05 00:00:00 Other forms [facility] [place] [facility] 2020-06-05 00:00:00 [facility] [place] [facility] 2020-06-05 00:00:00 Health[facility]related [facility] [place] [facility] 2020-06-05 00:00:00 Tobacco [facility] exposure [facility] [place] [facility] 2020-06-05 00:00:00 [facility] [place] [facility] 2020-06-05 00:00:00 Details of drug [facility] [place] [facility] 2020-06-05 00:00:00 Current every day smoker [facility] [place] [facility] 2020-06-05 00:00:00 [facility] exertion [facility] 2020-06-05 00:00:00 How often do you have 6 or [facility] more drinks on 1 occasion? [facility] 2020-06-05 00:00:[facility] 2020-06-05 00:00:00 Tobacco smoking status IDIS [facility] 2020-06-05 00[facility]00:00 [facility] 2020-07-17 00:00:00 [facility] 2020-07-17 00:00:00 [facility]related behavior [facility] 2020-07-17 00:00:00 [facility] 2020-07-17 00:00:00 Exercise [facility] 2020-07-17 00:00:00 Details of drug misuse [facility] behavior [facility] 2020-07-17 00:00:00 Current every day smoker [facility] 2020-07-17 00:00:00 How often do you have 6 or [facility] more drinks on 1 occasion? [facility] 2020-07-17 00:00:00 [facility] 2020-07-17 00:00:00 Tobacco smoking status IDIS [facility] Primary Care [facility] 2020-07-17 00:00:00 Total [facility] 2020-08-15 12:45 OTHER FORMS OF DYSPNEA [facility] Allergies date description facility AZITHROMYCIN [facility] [place] ZINC [facility] [place] ERYTHROMYCIN BASE [facility] [place] NO KNOWN ENVIRONMENTAL ALLERGIES [facility] OTHER [facility] TOMATO (SOLANUM LYCOPERSICUM) [facility] NSAIDS (NON-STEROIDAL ANTI-INFLAMMATORY DRUG) [facility] PENICILLINS [facility] SULFA (SULFONAMIDE ANTIBIOTICS) formerly [facility] IODINATED CONTRAST MEDIA [facility] NO KNOWN ALLERG[facility] LORAZEPAM [facility] PROCHLORPERAZINE EDISYLATE [facility]IN [facility] DYE [facility] FUROSEMIDE [facility] DOXYCYCLINE [facility] CLINDAMYCIN [facility] NYSTATIN [facility] HYMENOPTERA ALLERGENIC EXTRACT [facility] OMEPRAZOLE [facility] METOPROLOL [facility] ZOLPIDEM [facility] RISPERIDONE [facility] PROMETHAZINE [facility] AMITRIPTYLINE [facility] SERTRALINE [facility] HYDROMORPHONE [facility] KETOROLAC [facility] PANTOPRAZOLE [facility] OMEPRAZOLE MAGNESIUM [facility] CAPTOPRIL [facility] MONTELUKAST [facility] BEE POLLEN [facility] IODINE [facility] LATEX [facility] TOPICAL AGENT COMBINATION NO.1 [facility] STRAWBERRY [facility] AMOXICILLIN-POT CLAVULANATE [facility] [place] NUTRITIONAL SUPPLEMENT-FIBER [facility] ADHESIVE TAPE-SILICONES [facility] NORGESTIMATE-ETHINYL ESTRADIOL [facility] Procedures date description facility 2020-06-05 00:00:00 EKG Interpretation [facility] [place] [facility] date description facility 2020-06-05 00:00:00 [facility] [place] [facility] Social History date description facility 2020-06-05 00:00:00 [facility] [place] [facility] date description facility 2020-07-17 00:00:00 [facility] [place] [facility] Social History date description facility 2020-06-05 00:00:00 Current every day smoker [facility] date description facility 2020-07-17 00:00:00 Current every day smoker [facility] date description facility [id number]
== END 2020-08-03 09:54 | disposition home or self-care (01) ==
LOC: DI 09:53
PROVIDERS: ATTEND Family Medicine
DX: R00.0 Tachycardia, unspecified (principal); R60.0 Localized edema; Z86.711 Personal history of pulmonary embolism
CPT/HCPCS: 93306; 93970

== ENCOUNTER 2020-08-03 09:55 | Outpatient (CLI) | payer OTHER ==
--- NOTE | 2020-08-03 14:03 | Ultrasound Report ---
PROCEDURE: Duplex Ext Veins Bilateral INDICATIONS: JUDYE SCHEIDT TECHNIQUE: Real-time imaging, as well as color and pulse Doppler interrogation, were performed of the deep veins of both legs from the inguinal ligament to the popliteal fossa. COMPARISON: None. FINDINGS: The deep veins are normally compressible, and free of intraluminal thrombus. Color and pu lse Doppler demonstrate normal phasic intravascular flow. There is normal augmentation response to d istal compression maneuver. IMPRESSION: No DVT found. Reviewed by: Kamran Gomez MD on 08/03/2020 2:02 PM PST Approved by: Kamran Gomez MD on 08/03/2020 2:02 PM PST Station ID: [id number]
== END 2020-08-03 09:56 | disposition home or self-care (01) ==
LOC: DI 09:55
PROVIDERS: ATTEND Family Medicine
DX: R60.0 Localized edema (principal); Z86.711 Personal history of pulmonary embolism
CPT/HCPCS: 93970

== ENCOUNTER 2021-01-28 10:47 | Outpatient (CLI) | payer OTHER | END 2021-01-28 10:48 | disposition EMS.NT | LOC: EMS 10:47 | DX: Z03.89 Encounter for observation for other suspected diseases and conditions ruled out (principal) ==

== ENCOUNTER 2021-02-05 08:00 | Outpatient (CLI) | payer OTHER ==
[2021-02-05 18:07] LABS: BASOPHILS # (AUTO) 0.1 10^3/uL (0.0-0.1); BASOPHILS % (AUTO) 0.9 %; EOSINOPHILS # (AUTO) 0.2 10^3/uL (0.0-0.7); EOSINOPHILS % (AUTO) 2.6 %; HCT - HEMATOCRIT 34.7 % (42.0-52.0); HGB - HEMOGLOBIN 11.4 g/dL (14.0-18.0); LYMPHOCYTES # (AUTO) 1.9 10^3/uL (1.5-3.5); LYMPHOCYTES % (AUTO) 28.1 %; MEAN CORPUSCULAR HEMOGLOBIN 34.4 pg (27.0-31.0); MEAN CORPUSCULAR HGB CONC 32.9 g/dL (32.0-36.0); MEAN CORPUSCULAR VOLUME 104.8 fL (80.0-94.0); MEAN PLATELET VOLUME 7.8 fL (7.4-11.4); MONOCYTES # (AUTO) 0.9 10^3/uL (0.0-1.0); MONOCYTES % (AUTO) 12.5 %; NEUTROPHILS # (AUTO) 3.8 10^3/uL (1.5-6.6); NEUTROPHILS % (AUTO) 55.3 %; PLT - PLATELET COUNT 442 10^3/uL (130-450); RED BLOOD COUNT 3.31 10^6/uL (4.70-6.10); RED CELL DISTRIBUTION WIDTH 12.8 % (12.0-15.0); WHITE BLOOD COUNT 6.9 x10^3/uL (4.8-10.8)
[2021-02-05 18:10] LABS: CALCIUM 8.9 mg/dL (8.5-10.3); CREATININE 0.6 mg/dL (0.6-1.2)
== END 2021-02-05 23:59 | disposition home or self-care (01) ==
LOC: LAB.WCP 08:00
PROVIDERS: ATTEND Family Medicine
DX: L03.90 Cellulitis, unspecified (principal); E87.1 Hypo-osmolality and hyponatremia
CPT/HCPCS: 36415; 80048; 85025